=== PATIENT | male | born 1995 | race Caucasian/White ===

== ENCOUNTER 2020-10-18 13:00 | Emergency (ER) | payer OTHER ==
[~2020-10-18] VITALS: Ht 175.3 cm; Wt 82.6 kg
[2020-10-18 13:05] VITALS: BP 109/67
[2020-10-18] MEDS ORDERED: HYDROcodone/APAP 5/325 MG 1 TAB TAB PO ONE (13:35)
[2020-10-18] MEDS ORDERED: METH750T5 PO (14:08)
[2020-10-18] MEDS ORDERED: NAPR-54 PO (14:08)
[2020-10-18 15:02] VITALS: BP 109/67
== END 2020-10-18 15:03 | disposition home or self-care (01) ==
LOC: MED 13:00
DX: S40.011A Contusion of right shoulder, initial encounter (principal); S09.90XA Unspecified injury of head, initial encounter; F90.9 Attention-deficit hyperactivity disorder, unspecified type; Z79.899 Other long term (current) drug therapy; V23.4XXA Motorcycle driver injured in collision with car, pick-up truck or van in traffic accident, initial encounter; Y93.89 Activity, other specified; Y92.89 Other specified places as the place of occurrence of the external cause; Y99.8 Other external cause status
CPT/HCPCS: 70450; 73000; 73030; 99284